=== PATIENT | female | born 1970 | race Caucasian/White ===

== ENCOUNTER 2020-04-28 08:42 | Observation (INO) | payer BC, OTHER ==
[2020-04-28] VITALS (7 sets, daily range): BP systolic 105–118; BP diastolic 63–70
[~2020-04-28] VITALS: Ht 165.1 cm; Wt 88.5 kg
[~2020-04-28 08:42] MED LIST: DULO1CAP6 PO; LR 1,000 ML IV ONE; MIDAZOLAM INJ 2MG/2ML VIAL (J2250 PER 1MG) IV PRN; fentaNYL 100 MCG/2 ML INJECTION (J3010) IV PRN
[2020-04-28] MEDS ORDERED: LIDOCAINE 1% MDV 20ML VIAL XX ONE (10:30)
[2020-04-28] MEDS ORDERED: ROPIvacaine 0.5% 30ML INJECTION (J2795 PER 1MG) XX ONE (10:30)
[2020-04-28] MEDS ORDERED: dexameTHASONE 10MG/1ML VIAL PRES.FREE (J1100 PER 1MG) XX ONE (10:30)
[2020-04-28] MEDS ORDERED: BUPIVACAINE/EPIN 0.25% 30 ML VIAL As Ordered ONE (10:40)
[2020-04-28] MEDS ORDERED: KETOROLAC 60MG 2ML VIAL As Ordered ONE ×2 (10:41→13:50)
[2020-04-28] MEDS ORDERED: ceFAZolin 1GM VIAL (J0690 PER 500MG) As Ordered ONE (10:41)
[2020-04-28] MEDS ORDERED: TRANEXAMIC ACID 100 MG/ML 10ML VIAL As Ordered ONE (10:41)
[2020-04-28] MEDS ORDERED: VANCOMYCIN 1000MG/20ML VIAL As Ordered ONE (10:43)
[2020-04-28] MEDS ORDERED: ceFAZolin SOD 2 GM in IV 1 EA IV ONE (10:45)
[2020-04-28] MEDS ORDERED: VANCOMYCIN HCL 1,000 MG, VIAL MATE ADAPTER 1 EACH in D5W 250 ML IV ONE (11:00)
[2020-04-28] MEDS ORDERED: MORPHINE 2 MG/ML 1ML VIAL (J2270) As Ordered ONE (11:57)
[2020-04-28] MEDS ORDERED: MIDAZOLAM INJ 2MG/2ML VIAL (J2250 PER 1MG) As Ordered ONE (12:13)
[2020-04-28] MEDS ORDERED: propofoL 500 MG/50 ML VIAL As Ordered ONE (12:13)
[2020-04-28] MEDS ORDERED: fentaNYL 100 MCG/2 ML INJECTION (J3010) As Ordered ONE (12:14)
[2020-04-28] MEDS ORDERED: LIDOCAINE 2% 100MG/5ML SDV (FOR ANES.) As Ordered ONE (12:16)
[2020-04-28] MEDS ORDERED: dexameTHASONE 4 MG/ML 1ML VIAL (J1100 PER 1MG) As Ordered ONE (13:03)
[2020-04-28] MEDS ORDERED: ONDANSETRON 4MG/2ML VIAL As Ordered ONE (13:50)
[2020-04-28] MEDS ORDERED: ACETAMINOPHEN TAB 650MG DOSE (2X325MG) PO PRN (14:30)
[2020-04-28] MEDS ORDERED: oxyCODONE 5MG TAB PO PRN (14:30)
[2020-04-28] MEDS ORDERED: ONDANSETRON 4MG/2ML VIAL IV PRN ×2 (14:30)
[2020-04-28] MEDS ORDERED: LR 1,000 ML IV SCH ×2 (14:30)
[2020-04-28] MEDS ORDERED: PERCOCET 5MG/325MG TAB PO PRN ×2 (14:30)
[2020-04-28] MEDS ORDERED: traMADol 50 MG TAB PO PRN (14:30)
[2020-04-28] MEDS ORDERED: fentaNYL 100 MCG/2 ML INJECTION (J3010) IV PRN (14:30)
[2020-04-28] MEDS ORDERED: HYDROMORPHONE HCL 0.5 MG/ 0.5 ML SYRINGE (J1170 PER 1) IV PRN (14:30)
--- NOTE | 2020-04-28 14:49 | REP ---
INDICATION: POST OP COMPARISON: None. TECHNIQUE: AP and lateral right knee. FINDINGS: Total knee prosthesis is noted in good position. Osseous structures are intact and well aligned. Air is seen anteriorly in the soft tissues. IMPRESSION: Right total knee arthroplasty in good position. <Electronically signed by Brock Case > 04/28/20 [id number]
--- NOTE | 2020-04-28 18:35 | IPNPDOC ---
Text Note Date of Service The patient was seen on 04/28/20. NOTE Subjective: Patient seen and examined at bedside. No acute medical complaints. Objective: General: NAD, lying comfortably in bed HEENT: NC/AT Lungs: CTA B/L Heart: +S1S2, RRR Abd: soft, NT, +BS, obese A/P: 50 year old female POD #0 for right TKA secondary to OA of the knee failing conservative therapy. #OA - s/p right TKA POD #0 - follow as per primary team - ortho #DVT prophylaxis - as per primary team Thank you for this consultation. Please re-consult as needed. VS,Fishbone, I+O VS, Fishbone, I+O Vital Signs Date Time Temp Pulse Resp B/P (MAP) Pulse Ox O2 Delivery O2 Flow Rate FiO2 04/28/20 16:47 98.1 96 17 110/68 (82) 96 04/28/20 15:08 Room Air 04/28/20 14:07 3 DIVYA CHEN MD Apr 28, 2020 18:35
[2020-04-28] MEDS: ceFAZolin SOD 2 GM in IV 1 EA IV SCH (21:07)
[2020-04-28] MEDS: ASPIRIN 81 MG ENTERIC TAB PO SCH (21:07)
[2020-04-28] MEDS ORDERED: dexameTHASONE 20MG/5ML VIAL (J1100 PER 1MG) IV ONE (22:30)
[2020-04-29 02:00] VITALS: BP 110/69
[2020-04-29] MEDS: ceFAZolin SOD 2 GM in IV 1 EA IV SCH (05:16)
[2020-04-29 05:17] VITALS: BP 116/69
[2020-04-29] MEDS ORDERED: TRAM50TA2 PO (05:54)
[2020-04-29] MEDS ORDERED: ECOT81TA5 PO (05:54)
[2020-04-29 07:21] LABS: HEMATOCRIT 37.5 % (36.0-47.0); HEMOGLOBIN 11.9 g/dl (12.0-15.5); MEAN CORPUSCULAR HEMOGLOBIN 28.3 pg (27.0-33.0); MEAN CORPUSCULAR HGB CONC 31.7 g/dl (32.0-36.5); MEAN CORPUSCULAR VOLUME 89.3 fl (80.0-96.0); PLATELET COUNT, AUTOMATED 283 10^3/uL (150-450)
[2020-04-29 08:11] LABS: ALBUMIN 3.7 GM/DL (3.2-5.2); ALT/SGPT 22 U/L (12-78); BILIRUBIN,TOTAL 0.3 MG/DL (0.2-1.0); BLOOD UREA NITROGEN 15 MG/DL (7-18); CALCIUM LEVEL 9.4 MG/DL (8.5-10.1); CARBON DIOXIDE LEVEL 29 MEQ/L (21-32); CHLORIDE LEVEL 103 MEQ/L (98-107); CREATININE FOR GFR 0.99 MG/DL (0.55-1.30); GLOMERULAR FILTRATION RATE > 60.0 (>51); GLUCOSE, FASTING 116 MG/DL (70-100); POTASSIUM SERUM 4.3 MEQ/L (3.5-5.1); SODIUM LEVEL 139 MEQ/L (136-145); TOTAL PROTEIN 6.4 GM/DL (6.4-8.2)
[2020-04-29] MEDS: ASPIRIN 81 MG ENTERIC TAB PO SCH (09:28)
--- NOTE | 2020-05-01 13:44 | RO ---
OPERATIVE NOTE DATE OF OPERATION: 04/28/2020 PREOPERATIVE DIAGNOSIS: Right knee osteoarthritis. POSTOPERATIVE DIAGNOSIS: Right knee osteoarthritis. PROCEDURE: Right total knee arthroplasty. SURGEON: Jayson Orozco MD SUPPLY TECHNICIAN: Gerry ___ ANESTHESIA: ESTIMATED BLOOD LOSS: 50 mL. SPECIMEN: Bone cut. DRAINS: None. COMPLICATIONS: None. IMPLANTS: [place] [employer] Press-Fit Knee System, size CR femur, 11 CS poly, 5 Press-Fit tibia and 35 asymmetric patella. INDICATIONS FOR PROCEDURE: The patient is a 49-year-old female with bilateral knee osteoarthritis. The patient was extensively treated in a conservative fashion. However, the patient then underwent left knee arthroplasty which is functioning well. The patient has tried to avoid surgery, especially due to her young age cohort. However, due to the patient's continued discomfort the patient did opt to proceed with right total knee arthroplasty after failure of conservative therapies and discussion of the increased complication rate as well as increased wear and tear rate and possible aseptic loosening that occurs with arthroplasty in individuals under 55. DESCRIPTION OF PROCEDURE: The patient was identified in the preoperative area, site was marked and consent was obtained. The patient was brought into the operating theater; an adduction block was administered followed by spinal anesthesia. After the patient was prepped and draped in standard sterile fashion a time out was performed during which I confirmed that the patient received Ancef, Vancomycin, TXA and Decadron, the appropriate site was also confirmed. Tourniquet was insufflated. A midline incision was then made. Dissection was carried down to the capsule. A medial parapatellar arthrotomy was then entered. The patellar fat pad was partially resected. The femoral fat pad was partially resected and medial release was performed. The ACL, PCL, medial and lateral menisci were then inspected. The menisci were removed. The ACL was removed and the PCL was maintained. The patient's cartilage was then inspected and the patient had tricompartmental osteoarthritis which was significantly more prevalent in the medial compartment. Using intramedullary instrumentation a 6 degree valgus cut was then performed on the distal femur taking 9 mm of bony resection. Attention was then turned to the tibia. Using extramedullary instrumentation 9 mm was taken from the lesser effected lateral side. A waffle block was used to confirm appropriate balancing of medial and lateral gaps of balance in extension. Attention was turned to the femur. The femur was pinned and sized and appropriate external rotation using posterior condyles, Roby line and the medial epicondylar axis for reference. This was sized to size 5 femur and size 5 cutting block was then applied and the appropriate cuts were made. Flexion and extension gaps were then again rechecked and these were found to be stable with 9 and 11 block. The 11 block was slightly tight; however, this did permit its insertion without too much difficulty. The tibia was sized to size 5 tibia, trial femur was applied, the trial 5 tibia was then floated with 9 poly and pinned into appropriate external rotation. The patella was then resurfaced and prepared for Press-Fit implant. The bone stock was again re-inspected and the tibia was then also prepared for Press-Fit implant. The trials were then removed. Thorough irrigation was performed. The tibia was impacted in and found to be well seated and stable. The femur and patella were then also impacted in. The knee was re-trialed with 9 and 11 poly and 11 CS poly was chosen. This was then inserted in with all final implants; the knee had excellent range of motion, excellent stability and excellent patellar tracking. Thorough irrigation was again performed. The arthrotomy was closed with #1 Vicryl and Quill/Stratafix type suture. The adipose layer was closed with #1 Vicryl, 2-0 Vicryl was used for the subcu, 3-0 Monocryl was used for skin. The patient was placed into Prineo dressing and then placed in standard sterile dressing and transported to PACU in stable condition. POSTOPERATIVE PLAN: The patient will be in my normal pain control category. The patient will be on Aspirin for DVT prophylaxis and weightbearing as tolerated.
== END 2020-04-29 11:00 | disposition home or self-care (01) ==
LOC: M SDC 08:42 → M MS5PR 08:42 → EDUNIT# 09:30 → EDSTATUS 09:30 → M SDC 15:00 → M MS5PR 15:00 → M SDC 04-29 11:00 → M MS5PR 04-29 11:00
PROVIDERS: ADMIT Student in an Organized Health Care Education/Training Program; ATTEND Student in an Organized Health Care Education/Training Program
DX: M17.11 Unilateral primary osteoarthritis, right knee (principal)
CPT/HCPCS: 27486; 36415; 64447; 73560; 80053; 85027; 88304; 88311; 96365; 96366; 96375; 97116; 97161; C1776; J0690; J1100; J1885; J2250; J2270; J2405; J2795; J3010; J3370

== ENCOUNTER 2024-12-03 08:21 | Day surgery (SDC) | payer BC ==
[~2024-12-03] VITALS: Ht 165.1 cm; Wt 89.5 kg
[~2024-12-03 08:21] MED LIST changes: +ACETAMINOPHEN 1000MG/100ML IV BAG As Ordered ONE; +ECOT81TA5 PO; +LIDOCAINE 2% 100 MG/5 ML SDV (FOR ANES.) As Ordered ONE; -LR 1,000 ML IV ONE; +MIDAZOLAM INJ 2 MG/2 ML VIAL As Ordered ONE; -MIDAZOLAM INJ 2MG/2ML VIAL (J2250 PER 1MG) IV PRN; +TRAM50TA2 PO; -fentaNYL 100 MCG/2 ML INJECTION (J3010) IV PRN
[2024-12-03] MEDS ORDERED: LR 1,000 ML IV SCH (08:30)
[2024-12-03] MEDS: LIDOCAINE 2% MDV 20 ML VIAL As Ordered ONE (08:58)
[2024-12-03] MEDS: ceFAZolin SOD 2 GM IV ONCE IV ONE (10:40)
[2024-12-03] MEDS ORDERED: KETOROLAC 30 MG/ML 1 ML VIAL As Ordered ONE (11:22)
[2024-12-03] MEDS: GENTAMICIN SULF 80 MG/2 ML VIAL As Ordered ONE (12:10)
[2024-12-03] MEDS: dexAMETHasone 4 MG/ML 1 ML VIAL As Ordered ONE (12:10)
[2024-12-03] MEDS: ONDANSETRON 4MG 2ML VIAL IV STA (13:16)
[2024-12-03 13:30] VITALS: BP 111/61; TEMP 97.2; O2SAT 98
== END 2024-12-03 13:42 | disposition home or self-care (01) ==
LOC: M SDC 08:21
PROVIDERS: ATTEND Podiatrist
DX: M20.11 Hallux valgus (acquired), right foot (principal)
CPT/HCPCS: 28297; 73630; 76000; 88300; C1713; J0131; J0665; J0690; J1885; J2250; J2405; J3010